=== PATIENT | male | born 1955 | race Caucasian/White ===

== ENCOUNTER 2017-04-22 14:42 | Emergency (ER) | payer SELFPAY ==
[~2017-04-22] VITALS: Ht 170.2 cm; Wt 70.3 kg
--- NOTE | 2017-04-22 14:50 | NUR ---
PT [facility] TO ER BED 14. PER REPORT NEAR [facility] TODAY. C/O GENERALIZED WEAKNESS AND DIZZINESS. HX OF A FIB. PT DENIES CHEST PAIN. GOWNED AND PLACED ON MONITOR. ABDOMINAL HEARNIA NOTED. PT IS AAOX3. AWAITING MD OLSON.
--- NOTE | 2017-04-22 14:50 | NUR ---
PT [facility] TO ER BED 14. C/O JAW PAIN CHRONIC AFTER A "SKI ACCIDENT." HERE FOR DIZZINESS AND GENERALIZED WEAKNESS. GOWNE AND PLACED ON MONITOR. AWAITING MD OLSON.
--- NOTE | 2017-04-22 14:58 | NUR ---
DR QUIN[place]NA AT BEDSIDE FOR EVAL.
--- NOTE | 2017-04-22 15:16 | NUR ---
IV LINE STARTED BLOOD DRAWN AND SENT TO LAB.
[2017-04-22] MEDS ORDERED: IOHEXOL-350 100 ML VIAL IV ONE (15:20)
[2017-04-22] MEDS ORDERED: IV NS 0.9% 250 ML IV ONE (15:20)
[2017-04-22 16:01] LABS: BASOPHILS % (AUTO) 0.3 % (0.0-2.0); EOSINOPHILS # (AUTO) 0.1 /CMM (0.0-0.7); EOSINOPHILS % (AUTO) 1.3 % (0.0-6.0); HEMATOCRIT 38 % (39-51); HEMOGLOBIN 12.1 g/dL (13.5-17.5); LYMPHOCYTES # (AUTO) 0.8 /CMM (0.8-4.8); LYMPHOCYTES % (AUTO) 13.6 % (20.0-44.0); MEAN CORPUSCULAR HEMOGLOBIN 24 PG (26.0-33.0); MEAN CORPUSCULAR HGB CONC 32 g/dl (31.0-36.0); MEAN CORPUSCULAR VOLUME 77 fL (80-96); MONOCYTES # (AUTO) 0.3 /CMM (0.1-1.30); MONOCYTES % (AUTO) 5.8 % (2.0-12.0); NEUTROPHILS # (AUTO) 4.5 /CMM (1.8-8.9); PLATELET COUNT (AUTO) 284 /CMM (150-450); RDW COEFFICIENT OF VARIATION 20.7 (11.5-15.0); RED BLOOD CELL COUNT(AUTO) 4.96 MIL/uL (4.5-6.0); WHITE BLOOD COUNT (AUTO) 5.7 K/uL (4.3-11.0)
[2017-04-22 16:02] LABS: PROTHROMBIN TIME 10.7 SECS (9.5-12.7)
[2017-04-22 16:04] LABS: ALBUMIN 2.6 g/dL (3.4-5.0); BILIRUBIN,DIRECT 0.1 mg/dL (0.0-0.2); BILIRUBIN,TOTAL 0.5 mg/dL (0.2-1.0); CALCIUM, SERUM 8.1 mg/dL (8.5-10.1); POTASSIUM 3.9 mmol/L (3.5-5.1); TOTAL PROTEIN, SERUM 6.5 g/dL (6.4-8.2); TROPONIN I 0.017 ng/mL (0.00-0.056)
--- NOTE | 2017-04-22 16:14 | NUR ---
PT TO RADIOLOGY FOR CHEST CTA VIA [facility].
--- NOTE | 2017-04-22 19:25 | NUR ---
PT AMBULATED TO THE BATHROOM W/ STEADY GAIT. ERMD AWARE.
--- NOTE | 2017-04-22 19:37 | NUR ---
Patient discharged to home in stable condition. Written and verbal after care instructions given. Patient verbalizes understanding of instruction.IV removed. Catheter intact and site benign. Pressure and 4x4 applied to site. No bleeding noted.
[2017-04-22 19:39] VITALS: BP 122/76
== END 2017-04-22 19:39 | disposition home or self-care (01) ==
LOC: ER 14:46
DX: R55 Syncope and collapse (principal); D64.9 Anemia, unspecified; F14.10 Cocaine abuse, uncomplicated; I48.91 Unspecified atrial fibrillation; I77.811 Abdominal aortic ectasia; I49.1 Atrial premature depolarization; F17.200 Nicotine dependence, unspecified, uncomplicated
CPT/HCPCS: 36415; 70450; 70498; 71010; 71275; 74174; 80048; 80076; 80305; 82962; 84484; 85025; 85730; 87081; 93005; 99285; A4606; G0480; J7050; Q9967; Z7610